=== PATIENT | female | born 2000 | race Caucasian/White ===

== ENCOUNTER 2019-01-25 21:53 | Emergency (ER) | payer OTHER ==
[~2019-01-25] VITALS: Ht 157.5 cm; Wt 81.7 kg
[2019-01-25 22:11] LABS: URINE BILIRUBIN NEGATIVE (Negative); URINE BLOOD NEGATIVE (Negative); URINE CLARITY CLEAR; URINE COLOR YELLOW; URINE GLUCOSE-RANDOM NEGATIVE (Negative); URINE KETONES NEGATIVE (Negative); URINE LEUKOCYTES-REFLEX NEGATIVE (Negative); URINE NITRITE-REFLEX NEGATIVE (Negative); URINE PROTEIN NEGATIVE (Negative); URINE SPECIFIC GRAVITY 1.015 (1.005-1.030); URINE UROBILINOGEN 0.2 E.U./dl (0.2-1.0)
[2019-01-25] MEDS ORDERED: ACID CONTROLLER20 MG PO (22:24)
[2019-01-25] MEDS ORDERED: ONDANSETRON HCL4 M2 PO (23:36)
[2019-01-25 23:45] VITALS: BP 119/74
== END 2019-01-25 23:46 | disposition home or self-care (01) ==
LOC: M.ERS 21:53
PROVIDERS: Nurse Practitioner Family
DX: R12 Heartburn (principal); Z32.02 Encounter for pregnancy test, result negative